=== PATIENT | female | born 1980 | race Caucasian/White ===

== ENCOUNTER 2020-06-14 04:17 | Inpatient (IN) | payer BC ==
[2020-06-13 12:35] LABS: Urine Appearance CLEAR (Clear); Urine Bilirubin NEGATIVE (Negataive); Urine Blood NEGATIVE (Negative); Urine Color YELLOW (Yellow); Urine Glucose NEGATIVE (Negative); Urine Microscopic Reflex NO UMIC; Urine Protein NEGATIVE (Negative); Urine pH 6.5 (5.0-7.0)
[2020-06-13 12:41] LABS: Protime INR 0.89
[2020-06-13 12:53] LABS: Absolute Lymphocytes (CBC) 1.6 K/uL (0.7-4.9); Basophils % 0.3 % (0-1.3); Hematocrit 36.8 % (36.0-45.0); Lymphocytes % 16.4 % (15.3-44.8); MPV 9.8 fL (7.6-11.3); RBC Red Blood Cell Count 4.05 M/uL (3.86-4.86)
[2020-06-13 15:24] LABS: RPR (Rapid Plasma Reagin) NON-REACT (NON-REACT)
[~2020-06-14 04:17] MED LIST: CEFAZOLIN/SWI 2gm 2 GM/20 ML SYR IVP SCH
[2020-06-14 05:13] VITALS: O2SAT 99
[2020-06-14 05:29] VITALS: BMI 33.6
[2020-06-14] MEDS ORDERED: Ringers Lactate 1,000 ML IV SCH (05:30)
[2020-06-14] MEDS ORDERED: Ringers Lactate 1,000 ML IV PRN ×2 (05:30→15:27)
[2020-06-14] MEDS ORDERED: NA CIT/CITRIC AC 30 ML ORAL UDC PO ONE (06:00)
[2020-06-14] MEDS ORDERED: METOCLOPRAMIDE 10 MG/2mL INJ IV ONE (06:00)
[2020-06-14] MEDS ORDERED: FAMOTIDINE 20 MG/2 ML VIAL IV ONE (06:00)
[2020-06-14] MEDS ORDERED: CEFAZOLIN/SWI 2gm 2 GM/20 ML SYR ONE (07:12)
[2020-06-14] MEDS ORDERED: MORPHINE SULFATE/PF 1 MG/ML (10 ML AMP) ONE (07:43)
[2020-06-14] MEDS ORDERED: OXYTOCIN 10 UNIT/ML ML IV ONE ×2 (07:43)
[2020-06-14] MEDS ORDERED: METHYLERGONOVINE 0.2MG/ML AMP IM ONE ×2 (07:49→23:19)
[2020-06-14] MEDS ORDERED: LIDOCAINE 1% MPF 5 ML VIAL ONE (07:49)
[2020-06-14] MEDS ORDERED: BUPIVACAINE 0.75% (PF) 2 ML SP ONE (07:58)
[2020-06-14] MEDS ORDERED: EPHEDRINE SULF 50 MG/ML VIAL ONE (08:05)
[2020-06-14] MEDS ORDERED: BISACODYL 10 MG RECTAL SUPP RC PRN (08:32)
[2020-06-14] MEDS ORDERED: Oxycodone HCl/Acetaminophen 1 TAB TAB PO PRN ×2 (08:32)
[2020-06-14] MEDS ORDERED: ONDANSETRON 4 MG (ODT) TAB PO PRN (08:32)
[2020-06-14] MEDS ORDERED: IBUPROFEN 600 MG TAB PO PRN (08:32)
[2020-06-14] MEDS ORDERED: KETOROLAC 30 MG/ML INJ IM PRN (08:32)
[2020-06-14] MEDS ORDERED: DIPHENHYDRAMINE 25 MG TAB/CAP PO PRN (08:32)
[2020-06-14] MEDS ORDERED: KETOROLAC 30 MG/ML INJ IV PRN (08:32)
[2020-06-14] MEDS ORDERED: ACETAMINOPHEN 500 MG TAB PO PRN ×2 (08:32)
[2020-06-14] MEDS ORDERED: ONDANSETRON 4 MG/2 ML VIAL IV PRN (08:32)
[2020-06-14] MEDS ORDERED: ONDANSETRON 4 MG/2 ML VIAL ONE (08:40)
[2020-06-14] MEDS ORDERED: OXYTOCIN/LR 20 UNIT/1,000 ML BAG IV SCH (09:00)
[2020-06-14] MEDS: D5LR 1,000 ML with OXYTOCIN 20 UNIT IV SCH ×2 (09:28)
[2020-06-14] MEDS ORDERED: DIPHENHYDRAMINE 50 MG/ML VIAL IV PRN (10:19)
[2020-06-14] MEDS ORDERED: PROMETHAZINE INJ 25 MG/ML AMP IV PRN (10:41)
[2020-06-14] MEDS ORDERED: Rho(D) IG (HUMAN) 300 MCG SYR IM ONE (15:18)
[2020-06-14] MEDS ORDERED: CEFAZOLIN/SWI 2gm 2 GM/20 ML SYR IVP ONE (16:30)
--- NOTE | 2020-06-14 19:44 | OP ---
Surgeon: Saul Mattson MD Indications: Sybil Marmolejo is a 39-year-old 3, para 2, 2 previous C-sections, for a repeat . Full preoperative counseling concerning procedure and possible complications including i nfection; blood loss; anesthetic complications; injury to bladder, bowel, ureter; postoperative compl ications; clots in legs; pneumonia. The patient knows well this does not constitute all possible pro blems that could occur during or following surgery. Spinal block anesthesia. Dr. George's group, Dr Arvind Gilmore for assistance. Procedure In Detail: After adequate time-out was performed, a Pfannenstiel incision was created over previous incision site. The incision was carried to the fascia. The fascia was incised and incisio n carried transversely bilaterally. Anterior and posterior fascial planes were developed with both b izaiah and sharp dissection. Peritoneum was entered and retraction was applied. It was noted that the lower uterine segment was extremely thin. We could almost see the baby through the lower segment. A low transverse uterine incision created. A 7-pound 3-ounce female was delivered without difficulti es. Apgars 9 and 9. Cord blood specimen obtained. Placenta removed manually. Uterus cleared of cl ot and blood and exteriorized. Mild hypotonus was noted. 0.2 mg of Methergine IM as well as IV drip Pitocin. Estimated blood loss during procedure 900 mL. Cervical os dilated with ring clamp. Uteru s closed with a running locked stitch of 1 chromic followed by imbricating stitch of 1 chromic. At t his time, bilateral tubal ligation was performed as per the patient's wishes because of the thin lowe r uterine segment. Both tubes were kinked in the midportion, triply tied with 2-0 plain. Segment of tube was removed. The tubal lumen which were exposed were fulgurated. Gutters clear of clot and bl ood. Uterus replaced in the peritoneal cavity. The ligation sites were checked, noted to be intact. Bladder area was again checked, noted to be normal. No further bleeding. Muscles were then reappr oximated using 3 interrupted sutures of 0 Vicryl. Fascia was closed with 1 Vicryl running from eithe r angle to the midline. Subcutaneous tissue closed with 2-0 plain and then brandee for the skin. patient had been given 2 g of Ancef preop for prophylaxis. Tolerated all procedures well, transfer red back to her room in good condition. Final Diagnoses: Term intrauterine , repeat section x3, mild uterine hypotonus, ve ry thin lower uterine segment, bilateral tubal ligation performed. NAOMI/EMBER Voice ID: [id number] Report ID: [id number]
[2020-06-15] MEDS: D5LR 1,000 ML with OXYTOCIN 20 UNIT IV SCH ×2 (03:26)
[2020-06-15] MEDS ORDERED: MAGNESIUM HYDROXIDE 8% 30 ML PO PRN (08:32)
--- NOTE | 2020-06-15 10:59 | PN ---
Sybil Marmolejo is a 39-year-old female, 3, para 2, repeat section, tubal ligation. This morning, she is doing well. Afebrile. Output good. We will discontinue her Jeffery and IV. Fu ll postoperative talk given. She has only had Toradol since delivery. She needs RhoGAM before she l eaves and Tdap has been offered as well. Full postop talk. We will go over it again tomorrow. NAOMI/EMBER Voice ID: [id number] Report ID: [id number]
[2020-06-15 12:20] VITALS: BP 100/63; TEMP 97.8
[2020-06-16 18:13] LABS: HBsAG Nonreactive (Nonreactive)
--- NOTE | 2020-06-17 11:29 | PREOPHP ---
Date of Admission: 06/14/2020 History Of Present Illness: This is a 39-year-old, 3, para 2, 2 previous for repea t . Full preoperative counseling concerning procedure and possible complications including infection; blood loss; anesthetic complications; injury to bladder, bowel, ureter; postoperative comp lications; clots in legs; pneumonia. The patient knows well this does not constitute all the possibl e problems that could occur during or following surgery. Family History: Noncontributory for present illness. Allergies: SHE HAS NO ALLERGIES. Social History: No smoking. Medications: vitamins prior to admission. Physical Examination: HEENT: Clear. Pupils equal, round, reactive to light and accommodation. Conjunctivae well perfused . No oral, lingual, or buccal lesions. Chest: Clear. Lungs: Clear. Heart: Without murmurs, thrills, heaves, or rubs. Breasts: Not examined, but on previous visits were without masses. Abdomen: Term size. Baby is vertex. Extremities: Clear without edema, cyanosis, or clubbing. Assessment And Plan: We will admit for repeat section, possible tubal sterilization if the lower uterine segment is thin. NAOMI/EMBER Voice ID: [id number]
--- NOTE | 2020-06-17 13:23 | DS ---
Date of Discharge: 06/15/2020 The patient underwent repeat section #3 and tubal ligation as she had significant thinning o f the lower uterine segment. Surgery went uneventfully. Postoperative course was uneventful and in fact, patient requested to be dismissed 29 to 30 hours after surgery. She was ambulating, voiding. Lochia was normal. Taking liquids and food, therefore she was dismissed. RhoGAM was given prior to dismissal. Tdap also offered. She had no post spinal block problems. Blood count actually went up after surgery. Dismissed with tramadol for analgesia. Final Diagnoses: Term intrauterine , repeat section x3. Very thin lower uterine s egment. Tubal sterilization performed, spinal block anesthesia, RhoGAM administered. NAOMI/EMBER Voice ID: [id number] Report ID: [id number]
== END 2020-06-15 14:05 | disposition home or self-care (01) | DRG 785 ==
LOC: 2ND-WC 04:17 → EDSTATUS 07:30
PROVIDERS: ADMIT Specialist; ATTEND Specialist
PROC: 0UB70ZZ Excision of Bilateral Fallopian Tubes, Open Approach (ICD-10-PCS; 2020-06-14)
PROC: 3E0234Z Introduction of Serum, Toxoid and Vaccine into Muscle, Percutaneous Approach (ICD-10-PCS; 2020-06-14)
PROC: 10D00Z1 Extraction of Products of Conception, Low, Open Approach (ICD-10-PCS; principal; 2020-06-14 07:30)
DX: O34.211 Maternal care for low transverse scar from previous cesarean delivery (principal); O62.2 Other uterine inertia; Z3A.39 39 weeks gestation of pregnancy; Z37.0 Single live birth; Z20.822 Contact with and (suspected) exposure to COVID-19
CPT/HCPCS: 36415; 81003; 85014; 85025; 85461; 85610; 85730; 86592; 86850; 86870; 86900; 86901; 87340; 88302; 88307; J0690; J2210; J2405; J2590; J2765; J2790; J7120; J7121; U0003